=== PATIENT | female | born 1970 | race Caucasian/White ===

== ENCOUNTER → 2020-11-14 | Outpatient (CLI) | payer OTHER | LOC: EXRD 10:37 | DX: G56.00 Carpal tunnel syndrome, unspecified upper limb (principal); M25.50 Pain in unspecified joint; R76.8 Other specified abnormal immunological findings in serum; M19.042 Primary osteoarthritis, left hand; M19.041 Primary osteoarthritis, right hand | CPT/HCPCS: 73130 ==